=== PATIENT | female | born 1935 | race Caucasian/White ===

== ENCOUNTER 2016-08-18 11:49 | Day surgery (SDC) | payer MEDICARE, OTHER ==
[~2016-08-18 11:49] MED LIST: CLINDAMYCIN PHOSPHATE 900 MG in DEXTROSE 5 % IN WATER 100 ML IV PRN; RINGERS SOLUTION,LACTATED 1,000 ML IV PRN; ROPIVACAINE HCL/PF 40 MG in NORMAL SALINE 16 ML IJ PRN; ceFAZolin SODIUM 1 GM VIAL IV PRN
--- OUTSIDE RECORDS SUMMARY | 2016-08-18 11:51 | XMS REPORT | Continuity of Care Document ---
:1935 Author Organization [facility] [place] [address] Care Team Providers Name Role Phone Dayna Mitchell Primary Care Provider [phone] Source Comments This disclosure is being made pursuant to the [employer] program and maynot contain all information available regarding this patient.[facility] Active Allergies and Adverse Reactions Allergen Noted Date Severity Reactions Comments Cephalexin 04/12/2016 Medium Nausea And Vomiting Cephalosporins 01/10/2015 Medium Nausea And Vomiting Codeine 05/11/2016 Low Dizziness Iodinated Diagnostic Agents 01/10/2015 Low Rash Iodine 01/10/2015 Low Rash,Other (See Comments) Tramadol 04/12/2016 Medium Hallucinations Current Medications Be aware that medications may not be up to date as of this document. Alwaysverify current medications with the patient. Prescription Sig. Disp. Refills Start Date End Date Status diltiazem (TIAZAC) Take 240 mg by Active 240 MG 24 hr mouth. capsule pravastatin Take 40 mg by Active (PRAVACHOL) 40 MG mouth. tablet glipiZIDE ER 5 12/29/2014 Active (GLUCOTROL XL) 2.5 MG 24 hr tablet FREESTYLE LITE test 3 11/27/2014 Active strip Lancets (FREESTYLE) 3 11/27/2014 Active lancets furosemide (LASIX) Take 40 mg by Active 20 MG tablet mouth daily. potassium chloride Take 10 mEq by Active (K-TAB, KLOR-CON) mouth as needed. 10 MEQ tablet Take with Lasix. valsartan (DIOVAN) Take 160 mg by Active 160 MG tablet mouth daily. dofetilide Take 500 mcg by Active (TIKOSYN) 500 MCG mouth 2 (two) capsule times daily. tiotropium Place 18 mcg into Active (SPIRIVA) 18 MCG inhaler and inhale inhalation capsule daily. albuterol (PROAIR Inhale 2 puffs Active HFA;PROVENTIL into the lungs as HFA;VENTOLIN HFA) needed for 108 (90 BASE) Wheezing. MCG/ACT inhaler sertraline (ZOLOFT) Take 25 mg by Active 25 MG tablet mouth 2 (two) times daily as needed. Calcium Take 1 tablet by Active Carbonate-Vit D-Min mouth. (CALCIUM 1200 PO) Catheters MISC Pt to perform 90 each 11 04/09/2015 Active intermittent cath 3 x daily with a 14 fr straight cath. INCRUSE ELLIPTA 1 06/19/2015 Active 62.5 MCG/INH AEPB aspirin (ASPIRIN) Take 325 mg by Active 325 MG EC tablet mouth daily. levothyroxine Take 125 mcg by 2 08/06/2016 Active (SYNTHROID, mouth daily. LEVOTHROID) 125 MCG tablet levothyroxine 150 mcg. 5 12/18/2014 Discontinued (SYNTHROID, 7 LEVOTHROID) 75 MCG tablet pantoprazole Take 40 mg by Discontinued (PROTONIX) 40 MG mouth daily. 7 tablet Active Problems Problem Noted Date Recurrent urinary tract infection 06/24/2015 Incomplete bladder emptying 06/24/2015 Urinary retention 06/23/2015 History of UTI 06/23/2015 Cystocele, midline 06/28/2013 Overview: Overview: CRYSTAL WOLFF Urinary frequency 06/28/2013 Overview: Overview: CRYSTAL WOLFF Most Recent Encounters Date Type Specialty Providers Description 08/16/2016 Ophth Exam Ophthalmology Fito Jones Branch retinal vein R, MD occlusion with macular edema of both eyes (Primary Dx); Type 2 diabetes mellitus with both eyes affected by mild nonproliferative retinopathy without macular edema, without long-term current use of insulin (HCC); Hypertensive retinopathy of both eyes; Artificial lens present 07/23/2016 Ophth Exam Ophthalmology Fito Jones retinal vein R, MD occlusion with macular edema of both eyes (Primary Dx); Type 2 diabetes mellitus with both eyes affected by mild nonproliferative retinopathy without macular edema, without long-term current use of insulin (HCC); Hypertensive retinopathy of both eyes; Artificial lens present 06/22/2016 Ophth Exam Ophthalmology Fito Jones Branch retinal vein R, MD occlusion with macular edema of both eyes (Primary Dx); Type 2 diabetes mellitus with both eyes affected by mild nonproliferative retinopathy without macular edema, without long-term current use of insulin (HCC); Hypertensive retinopathy of both eyes; Artificial lens present 06/18/2016 Ophth Exam Ophthalmology Mark Ramírez MD Surgical aftercare, sense organs - Left Eye (Primary Dx); Pseudophakia - Both Eyes; 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; Type 2 diabetes mellitus with both eyes affected by mild nonproliferative retinopathy without macular edema, without long-term current use of insulin (HCC) 06/09/2016 Telephone Ophthalmology Sonja Perez, Eye Problem - Daughter COA calls with a question 06/01/2016 Orders Only Provider, Not In System 05/28/2016 Ophth Exam Ophthalmology Mark Ramírez MD After-cataract obscuring vision, left (Primary Dx); Pseudophakia - Both Eyes; 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; 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) - LeftEye; 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; Type 2 diabetes mellitus with both eyes affected by mild nonproliferative retinopathy without macular edema, without long-term current use of insulin (HCC) 05/21/2016 Ophth Exam Ophthalmology Mark Ramírez MD After-cataract obscuring vision, left (Primary Dx); Pseudophakia - Both Eyes; 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; 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) - LeftEye; 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; Type 2 diabetes mellitus with both eyes affected by mild nonproliferative retinopathy without macular edema, without long-term current use of insulin (HCC) Social History Tobacco Use Types Packs/Day Years Used Date Never Smoker Smokeless Tobacco: Never Used Alcohol Use Drinks/Week oz/Week Comments No Alcoholic Drinks/day: ALCOHOL USE: NON-DRINKER Last Filed Vital Signs Vital Sign Reading Time Taken Blood Pressure 136/72 06/23/2015 1:26 PM CDT Pulse 72 06/23/2015 1:26 PM CDT Temperature 37.2 C (98.9 F) 06/23/2015 1:26 PM CDT Respiratory Rate 21 06/23/2015 1:26 PM CDT Height 1.6 m (5' 3") 06/23/2015 1:26 PM CDT Weight 77.111 kg (170 lb) 06/23/2015 1:26 PM CDT Body Mass Index 30.12 06/23/2015 1:26 PM CDT Oxygen Saturation - - Plan of Care Date Type Specialty Providers Description 09/27/2016 Appointment Ophthalmology Fito Jones MD [address] [address] [phone] (Fax) Health Maintenance Due Date Last Done Comments Tetanus/Pertussis (1 - Tdap) 1952 Well Adult Visit 10/01/1983 Zoster Vaccine 60+ 1993 Bone Density 1998 Pneumococcal Low/Medium Risk 65+ (1 of 2 - PCV13) 1998 Influenza Immunization (#1) 2015 Results from Last 3 Months Intravitreal Injection, Pharmacologic Agent - OS - Left Eye (08/17/2016 1:15 PM )Only the most recent of2 resultswithin the time period is included. Narrative Carleen Ortiz, 08/17/20161:15 PM OS Avastin Intravit Inj - Left Eye Date/Time: 08/16/2016 2:30 PM Performed by: FITO JONES Authorized by: FITO JONES CT HEAD OR BRAIN WO CONTRAST (05/18/2016)
--- OUTSIDE RECORDS SUMMARY | 2016-08-18 11:51 | XMS REPORT | Continuity of Care Document ---
:1935 Author Organization [facility] Address [address] [place] [address] Phone [phone] Care Team Providers Name Role Phone Sam Freeman Primary Care Provider [phone] Source Comments This disclosure is being made pursuant to the Care Everywhere program, applicable federal and state laws, and may not contain all informaitonavailable regarding this patient.[facility] ([facility] Active Allergies and Adverse Reactions Allergen Noted Date Severity Reactions Comments Cephalexin 01/08/2013 Nausea & Vomiting Iodine Urticaria (Hives) Tramadol 06/27/2012 Hallucinations Current Medications Prescription Sig. Disp. Refills Start Date End Date Status levothyroxine take 112 mcg by mouth Active (SYNTHROID) 112 mcg daily. tablet OTHER Juice plus 4 tabs bid Active diltiazem 240 mg ER Take 240 mg by mouth Active capsule daily. losartan 100 mg Take 100 mg by mouth Active tablet daily. dofetilide (TIKOSYN) Take 500 mcg by mouth Active 500 mcg capsule 2 times daily. hydrALAZINE 50 mg Take 50 mg by mouth 2 Active tablet times daily. calcium carbonate Take 2 Tabs by mouth Active (CALCIUM 600 + D,3,) daily. (600 mg Ca) 1500 mg -cholecalciferol 200 unit per tablet [place]-3 Fatty Acids Take 1 Cap by mouth Active 1,250 mg cap daily. acetaminophen 500 mg Take 500 mg by mouth Active tablet daily as needed. atorvastatin 40 mg Take 1 Tab by mouth at 30 Tab 09/27/2013 Active tablet bedtime. Indications: MIXED HYPERLIPIDEMIA dabigatran (praDAXA) Take 1 Cap by mouth 2 60 Cap 09/27/2013 Active 150 mg capsule times daily. Indications: PREVENT THROMBOEMBOLISM WITH CHRONIC ATRIAL FIBRILLATION predniSONE 20 mg Take 3 Tabs by mouth 20 Tab 0 09/27/2013 Active tablet daily. Indications: Sensorineural hearing loss Active Problems Problem Noted Date Stroke 09/24/2013 Cystocele 01/02/2013 Recurrent UTI 06/27/2012 Feeling of incomplete bladder emptying 06/27/2012 Branch retinal vein occlusion, both eyes 02/15/2012 Overview: Formatting of this note may be different from the original. 03/23/2012 20/25-3 Avastin [id number] 05/11/2012 20/500 20/40 +2 [id number] 06/22/2012 20/600 ecc 20/25 +2 Avastin 08/03/2012 20/219 20/28 Avastin [id number] 08/31/2012 20/280 -2 20/44 -1 Avastin [id number] 10/05/2012 Avastin [id number] 12/06/2012 20/300 eccen cc -2 cc Avastin [id number] Thyroid activity decreased 08/08/2008 Atrial fibrillation 08/08/2008 Overview: Cardioverted in past. Constipation 08/08/2008 Unspecified essential hypertension 11/01/2007 Resolved Problems Problem Noted Date Resolved Date Cystocele 06/27/2012 01/02/2013 Overview: Asymptomatic- may contribute to occasional incomplete bladder emptying Last Assessment & Plan: vv Dysuria 06/19/2008 06/27/2012 Immunizations Name Dates Previously Given Next Due Influenza, unspecified 01/06/2012 Pneumococcal, unspecified 01/06/2012 Social History Tobacco Use Types Packs/Day Years Used Date Never Smoker Smokeless Tobacco: Never Used Tobacco Cessation:Counseling Given: Yes Comments: Alcohol Use Drinks/Week oz/Week Comments Yes Very occasional Last Filed Vital Signs Vital Sign Reading Time Taken Blood Pressure 144/74 09/27/2013 12:00 PM CDT Pulse 72 09/27/2013 12:00 PM CDT Temperature 36.2 C (97.2 F) 09/27/2013 12:00 PM CDT Respiratory Rate 19 09/27/2013 12:00 PM CDT Height 1.6 m (5' 3") 09/24/2013 10:08 PM CDT Weight 76.2 kg (167 lb 15.9 oz) 09/24/2013 10:08 PM CDT Body Mass Index 29.77 09/24/2013 10:08 PM CDT Oxygen Saturation 95% 09/27/2013 12:00 PM CDT Plan of Care Health Maintenance Due Date Last Done Comments Hepatitis B Vaccine (1 of 3 - Primary 1935 Series) Tdap Vaccine 1946 Td Vaccine 10/01/1951 Colonoscopy 1983 Zoster Vaccine 1993 Osteoporosis Screening (DXA Bone Density) 1998 Pneumococcal Vaccine (1 of 2 - PCV13) 1998 HCC Annual Coding Diabetes with Chronic 03/07/2015 05/11/2012, 05/11/2012 Complications Influenza Vaccine: Seasonal (#1) 10/06/2015 01/06/2012 Lipid Disorder Screening 09/25/2018 09/25/2013 Results from Last 3 Months Not on file
[2016-08-18] MEDS ORDERED: RINGERS SOLUTION,LACTATED 1,000 ML IV ONE (12:45)
[2016-08-18] MEDS ORDERED: BUPIVACAINE HCL/EPINEPHRINE 10 ML VIAL IJ ONE (13:20)
--- NOTE | 2016-08-18 14:25 | OR ---
Operative Report - Dictated Report Narrative: Date: 08/18/2016 Physician: Anthony Cuevas M.D. Half Sole Fitter: Arjun Somers PA-C Preoperative diagnosis: Right Knee medial and lateral meniscus tear Postoperative diagnosis: Right Knee medial and lateral meniscus tear, chondromalacia medial femoral condyle Procedure: Right knee arthroscopy with partial medial and lateral meniscectomy, chondroplasty medial femoral condyle Anesthesia: MAC Plus local Complications: None Estimated blood loss: Minimal Tourniquet time: None Specimens: None Retained implants: None Drains: None Indications: Mrs. Storey Is a 80-year-old female who has been followed in my clinic with complaints of knee pain consistent with suspected medial and lateral joint pathology. Physical exam and diagnostic imaging were consistent with these complaints and concern for medial and lateral meniscus pathology. Conservative measures have failed including, but not limited to, passage of time , activity modification, medications, and injections. The risks, benefits, and alternatives were discussed in clinic. The risks being , bleeding, infection, blood clots, nerve, tendon, ligament, blood vessel injury, persistent pain, arthrosis, need for additional procedures, and persistent symptoms. Consent was obtained in the clinic. Procedure: After marking the correct extremity in the preoperative holding area, a timeout was performed in the operating room. IV antibiotics consisting of Ancef were administered prior to the procedure. A well-padded tourniquet was applied to the operative upper thigh. The leg was prepped and draped in a standard sterile fashion. 0.5% Marcaine with epinephrine was infused into the projected portal sites as well as the intra-articular space. A chelsea incision was made for inferior lateral portal. A blunt trocar and cannula was introduced into the knee. The suprapatellar pouch revealed no pathology. The medial patella facet showed minimal degenerative change. The lateral patella facet showed minimal degenerative change. The trochlea showed minimal degenerative change. The medial gutter revealed no pathology. The medial joint space was then entered utilizing a lateral post and valgus stress. A spinal needle was utilized for guidance into placement of an anterior medial portal. This was placed just superior to the medial meniscus ensuring that we could reach the posterior aspect of the medial joint space. A chelsea incision was made in the site, and the probe was introduced to the knee. The medial joint space was examined, and the medial femoral condyle showed grade 2-3 changes with chondral flap. The medial tibial plateau showed grade 2 change. The medial meniscus had a complex tear of the posterior one third involving approximately 20% of the depth. The notch was then examined, and the ACL was noted to be intact. The PCL was noted to be intact. The lateral joint space was then examined using a varus force in the figure 4 position. Lateral femoral condyle showed grade 2 change. Lateral tibial plateau showed focal grade 4 change. The lateral meniscus showed had a displaced pair deep type tear involving the anterior one half. The lateral gutter showed no pathology. Having identified the surgical pathology, a series of biters and nadeem were utilized in order to debride the medial femoral condyle down to stable margins. The posterior one third of the medial meniscus down approximately 20% of the depth and the anterior horn of the lateral meniscus involving approximate 75% of the depth over approximately 50% of the circumference. Once it was felt that we adequately addressed the pathology, the knee was thoroughly irrigated. The fluid was evacuated ensuring that we have removed all meniscal, chondral, and any other loose bodies. A final evaluation of the joint showed no additional pathology. The fluid was then evacuated of the knee, and the trocar and camera were removed from the joint. The wounds were closed with interrupted nylon after placing 20 mL of 0.2% ropivacaine into the joint. Dressings consisting of Xeroform, 4 x 4, ABD, soft roll, and an Pranay were applied. All sponge, needle, blade, and instrument counts were correct prior to closing the wounds. The patient was awoken and transferred to the postanesthesia care unit in stable condition.
[2016-08-18 17:16] VITALS: BP 138/72
== END 2016-08-18 11:50 | disposition home or self-care (01) ==
LOC: AMB 11:49
PROVIDERS: ATTEND Orthopaedic Surgery
PROC: 0SBD4ZZ Excision of Left Knee Joint, Percutaneous Endoscopic Approach (ICD-10-PCS; principal; 2016-08-18 13:50)
DX: M23.241 Derangement of anterior horn of lateral meniscus due to old tear or injury, right knee (principal); M23.203 Derangement of unspecified medial meniscus due to old tear or injury, right knee; M94.261 Chondromalacia, right knee; I10 Essential (primary) hypertension; J45.909 Unspecified asthma, uncomplicated; I48.91 Unspecified atrial fibrillation; E78.5 Hyperlipidemia, unspecified; E03.9 Hypothyroidism, unspecified; E05.00 Thyrotoxicosis with diffuse goiter without thyrotoxic crisis or storm; M85.80 Other specified disorders of bone density and structure, unspecified site; G47.33 Obstructive sleep apnea (adult) (pediatric); G47.00 Insomnia, unspecified; Z86.73 Personal history of transient ischemic attack (TIA), and cerebral infarction without residual deficits; E11.9 Type 2 diabetes mellitus without complications; Z68.28 Body mass index [BMI] 28.0-28.9, adult

== ENCOUNTER 2018-06-28 06:28 | Inpatient (IN) ==
--- NOTE | 2018-06-14 14:57 | ANES ---
Anesthesia Pre Procedure Eval HOME MEDICATIONS Calc/D3/Mag/Zn/Dani/[place] [Calcium 600 mg Plus Vit D Tab] 1 ea PO BID 07/13/16 [Last Taken Unknown] Diltiazem HCl [Diltiazem 24Hr Cd] 120 mg PO DAILY 07/13/16 [Last Taken Unknown] Estradiol [Estrace Vaginal] 1 appl VAGINAL Q2D PRN MDD vaginal dryness 07/13/16 [Last Taken Unknown] Furosemide [Lasix] 40 mg PO DAILY 07/13/16 [Last Taken Unknown] Methenamine Hippurate 1 gm PO BID 07/13/16 [Last Taken Unknown] Potassium Chloride [Klor-Con 10] 10 meq PO DAILY 07/13/16 [Last Taken Unknown] Pravastatin Sodium 40 mg PO DAILY 07/13/16 [Last Taken Unknown] Cyanocobalamin [Vitamin B-12] 1,000 mcg PO BID 08/18/16 [Last Taken Unknown] albuterol sulfate HFA 90 mcg/actuation aerosol inhaler 1 puff INHALATION Q6H PRN g 06/07/18 [Last Taken Unknown] diclofenac 20 mg/gram/actuation (2 %) topical soln metered-dose pump 2 pump TP BID 06/07/18 [Last Taken Unknown] dofetilide 500 mcg capsule 500 mcg PO BID cap 06/07/18 [Last Taken Unknown] sertraline 25 mg tablet 25 mg PO BID PRN tab 06/07/18 [Last Taken Unknown] aspirin 325 mg tablet 325 mg PO DAILY 06/08/18 [Last Taken Unknown] bethanechol chloride 10 mg tablet 10 mg PO TID 06/08/18 [Last Taken Unknown] irbesartan 75 mg tablet 75 mg PO DAILY 06/08/18 [Last Taken Unknown] levothyroxine 112 mcg capsule 112 mcg PO DAILY 06/08/18 [Last Taken Unknown] melatonin 1 mg tablet 1 mg PO HS PRN 06/08/18 [Last Taken Unknown] ondansetron HCl 8 mg tablet 8 mg PO TID 06/08/18 [Last Taken Unknown] Allergies/Adverse Reactions: Allergies Allergy/AdvReac Type Severity Reaction Status Date / Time iodine Allergy Intermediate rash Verified 06/14/18 08:35 codeine Allergy Mild dizziness Verified 06/14/18 08:35 Cephalosporins AdvReac Intermediate Vomiting Verified 06/14/18 08:35 tramadol AdvReac Intermediate Other Verified 06/14/18 08:35 Beta-Blockers AdvReac fatigue/col Verified 06/14/18 08:35 (Beta-Adrenergic Bloc d ezetimibe [From Vytorin] AdvReac leg pain Verified 06/14/18 08:35 hydrocodone AdvReac sedation Verified 06/14/18 08:35 simvastatin [From Vytorin] AdvReac leg pain Verified 06/14/18 08:35 Contrast Dye Allergy Intermediate rash Uncoded 06/14/18 08:35 - Planned Procedure Planned Procedure: Right Total Knee Arthroplasty Medication List Reviewed:: Yes Allergies Verified: Yes Medical History (Updated 06/08/18 @ 07:19 by Fernanda Gonzalze) Anxiety Onset Date: Unknown Asthma Onset Date: Unknown Atrial fibrillation Onset Date: Unknown Benign cyst of right breast in female Onset Date: Unknown Brain bleed Onset Date: Unknown CAD (coronary artery disease) Onset Date: Unknown Cataract Onset Date: Unknown right eye Cystocele Onset Date: Unknown Diabetic nephropathy Onset Date: Unknown OU Dysthymia Onset Date: Unknown Emphysema, unspecified Onset Date: Unknown Graves disease Onset Date: Unknown Hammertoe Onset Date: Unknown Hearing loss Onset Date: Unknown right ear Hyperlipidemia Onset Date: Unknown Hypertension Onset Date: Unknown Insomnia Onset Date: Unknown Ischemic stroke Onset Date: Unknown Low back pain Onset Date: Unknown Macular degeneration of both eyes Onset Date: Unknown Osteopenia Onset Date: Unknown Rectocele Onset Date: Unknown Sleep apnea Onset Date: Unknown nocturnal hypoxia and PAUL treated with BIPAP Spinal stenosis Onset Date: Unknown Type 2 diabetes mellitus Onset Date: Unknown UTI (urinary tract infection) Onset Date: Unknown Surgical History (Updated 06/08/18 @ 09:35 by Josep Nguyen RN) H/O prior ablation treatment Onset Date: 06/2004 thyroid History of arthroscopic knee surgery Onset Date: 08/18/16 right knee arthroscopy with partial medial and lateral meiscectomy, chondroplasty medial femoral condyle per Dr Cuevas History of bladder suspension procedure Onset Date: Unknown History of breast biopsy Onset Date: Unknown right History of cardiac catheterization Onset Date: 01/18/06 History of cardioversion Onset Date: 2008 History of cataract surgery Onset Date: Unknown right History of colonoscopy Onset Date: 04/11/00 History of cystoscopy Onset Date: Unknown History of foot surgery Onset Date: 10/2014 Repair of 5th digit hammertoe with plastic skin closure History of hysterectomy Onset Date: Unknown history of toe amputation Onset Date: 2018 left fourth lumbar decompression Onset Date: Unknown Family History (Updated 06/07/18 @ 07:30 by Fernanda Gonzalez) Father Myocardial infarction Mother Cancer colon - Family Anesthesia History Family History:: no untoward family reactions to anesthesia, no familial bleeding tendencies, no family history of clotting disorders, no family history of premature - Airway/Neck/Teeth Within Normal Limits:: Yes - chipped front tooth Mallampatti Score: 3 Thyromental (T-M) distance: > 6 cm Mandibulo Hyoid distance: > 3 cm - Respiratory Respiratory History: asthma, COPD, sleep apnea Smoking Status: Never smoker Discussed smoking cessation including day of surgery: No Sleep Apnea currently treated: Yes Discussed Risks/Treatment of PAUL: No - Cardiovascular Cardiac History: arrhythmia - AF Tolerate Activity: Fair - Anesthesia Assessment and Plan ASA Class: PS, III Anesthesia Type Plan: Block - Right ultrasound guided peripheral nerve block for postop analgesia, Spinal
[~2018-06-28 06:28] MED LIST changes: -CLINDAMYCIN PHOSPHATE 900 MG in DEXTROSE 5 % IN WATER 100 ML IV PRN; +MORPHINE SULFATE 15 MG TABLET.SA PO PRN; -RINGERS SOLUTION,LACTATED 1,000 ML IV PRN; +ROPIVACAINE HCL/PF 100 MG, EPINEPHrine 0.2 MG, KETOROLAC TROMETHAMINE 30 MG in NORMAL S... IJ PRN; -ROPIVACAINE HCL/PF 40 MG in NORMAL SALINE 16 ML IJ PRN; +TRANEXAMIC ACID 1,000 MG in NORMAL SALINE 100 ML IV PRN
[2018-06-28] MEDS: RINGER'S SOLUTION,LACTATED 1,000 ML IV PRN ×3 (07:28→15:34)
[2018-06-28] MEDS ORDERED: ONDANSETRON HCL/PF 2 MG/ML VIAL IV PRN (09:59)
[2018-06-28] MEDS ORDERED: MAG HYDROX/ALUMINUM HYD/SIMETH 30 ML UDC PO PRN (09:59)
[2018-06-28] MEDS ORDERED: ZOLPIDEM TARTRATE 5 MG TABLET PO PRN (09:59)
[2018-06-28] MEDS ORDERED: diphenhydrAMINE HCL 50 MG/ML VIAL IV PRN (09:59)
[2018-06-28] MEDS ORDERED: ACETAMINOPHEN 500 MG TABLET PO PRN (09:59)
[2018-06-28] MEDS ORDERED: MORPHINE SULFATE 2 MG/ML DISP.SYRIN IV PRN (09:59)
[2018-06-28] MEDS ORDERED: SERTRALINE HCL 50 MG TABLET PO PRN (10:02)
[2018-06-28] MEDS ORDERED: Melatonin 1 MG PO PRN (10:02)
--- NOTE | 2018-06-28 10:06 | OR ---
Operative Report - Dictated Report Narrative: Date: 06/28/2018 Preoperative diagnosis: Right Knee degenerative joint disease. Postoperative diagnosis: Right Knee degenerative joint disease. Procedure: Right Total knee arthroplasty. Surgeon: Anthony Cuevas M.D. Microsoft Application Developer: Arjun Somers PA-C (provided and essential set of skilled, educated hands that assisted with transfer, positioning, prepping, draping, manipulation, retraction, placement of jigs, injection, insertion of implants, irrigation, closure wounds, and dressings all of which could not be performed by the available surgical crew) Anesthesia: Spinal with regional block and local periarticular joint injection. Complications: None Specimens: Bone for disposal. Estimated blood loss: Minimal. Tourniquet time: 75 Minutes at 325 millimeters of mercury. Retained implants: Depuy Attune size 5 narrow right lugged cemented posterior stabilized femoral component. Size 4 fixed-bearing cemented tibial platform. 5 by 7 millimeter posterior stabilized cross-linked tibial insert. 41 millimeter medialized patella button. Indications: Mrs. Storey is a 82-year-old female who has had long-standing right knee pain and arthrosis. This patient was followed in my clinic for period of time with significant complaints of right knee pain consistent with arthritic changes. She had failed conservative measures including, but not limited to, activity modification, passage of time, medications, and other conservative measures. Patient wished to proceed with surgical treatment. The risks, benefits, and alternatives were discussed in clinic. The risks of , blood clots, bleeding, infection, nerve/tendon blood vessel/ injury, malposition of components, intraoperative fracture, postoperative limited range of motion, persistent pain, failure of components, and need for additional procedures. Patient wished to proceed consent was obtained after answering all questions. Procedure: After marking the correct extremity on the floor, the patient was taken to the operating room. A timeout was performed. IV antibiotics consisting of Ancef were administered prior to the procedure. A regional followed by spinal anesthetic was induced by anesthesia, per my request, on the operative table with all bony prominences well-padded. Scott catheter was placed, and a bump was placed under the operative side buttock. SCDs and DARLENE hose were utilized on the nonoperative leg. A well-padded tourniquet was applied to the operative thigh. The operative leg was then pre-scrubbed with alcohol, prepped, and draped in a standard sterile fashion. After exsanguinating the extremity with an Esmarch bandage, the tourniquet was inflated. After marking out the anterior knee for standard incision centered over the patella, the skin was incised and dissected down to the joint retinaculum. The joint retinaculum was marked out as well as the horizontal axis of the patella, and a standard medial parapatellar arthrotomy was then made. The most proximal aspect of the quadriceps tendon and the patella tendon insertion were protected from release. A partial synovectomy was performed as well as a resection of the infrapatellar fat pad. The distal femoral fat pad proximal to the trochlea was also resected using cautery. The soft tissues were elevated off the medial aspect of the proximal tibia using a Barnhart elevator ensuring that we did not transect the medial collateral ligament. Upon initial evaluation range of motion was approximately 5 degrees to 130 degrees of flexion. There were signs of advanced arthrosis in the lateral and patellofemoral greater than medial joint spaces. There were large marginal osteophytes which were removed with a rongeur. The knee was hyperflexed and the patella was tucked laterally. Protecting the surrounding soft tissues with Homans, an entry drill was placed down the femoral canal using Whitesides line for guidance into the entry point. The intramedullary femoral alignment hermilo was utilized in order to cut the distal femur in 5 degrees of valgus resecting 10 millimeters of bone. Next the distal femur was sized to a size 5. A posterior referencing guide was utilized to place the distal femoral cutting block in 3 degrees of external rotation. This was pinned into place. The rotation was confirmed both visually and based on anatomic landmarks. The 4 in 1 cutting jig of the appropriate size was utilized in order to make all bony cuts. The angle wing was used to ensure no notching. Retractors were utilized in order to protect surrounding soft tissues. This cut did not result in any excessive notching. We then cut the box centered over the distal femur. This allowed for resection of the anterior and posterior cruciate ligaments. I then turned my attention to the preparation of the tibia. Using an extra medullary tibial alignment hermilo, 5 millimeters of bone was resected off the medial articular surface. This was made perpendicular to the mechanical axis of the joint with the alignment hermilo centered over the ankle mortise. The alignment hermilo was checked and was noted to be parallel to the mechanical axis, centered over the medial one third of the tibial tubercle, paralleling the anterior surface of the tibia. We then turned our attention to the remaining meniscus and soft tissues. These were removed while protecting the surrounding ligaments and soft tissues. The marginal osteophytes off the anterior, posterior, medial, lateral aspects of the femur and tibia were removed. The tibia was sized out to a size 4. Next the tibia was drilled and punched in an externally rotated position. Next the trial femur and a series of tibial inserts were utilized in order to allow for full extension and maximal flexion. It was found that a 7 millimeter insert gave the best range of motion and stability at multiple flexion points as well as at full extension there was less than 2 mm of gapping both medially and laterally. There is minimal anterior translation with the knee at 90 degrees of flexion and no signs of being able to dislocate the knee. The patella was then prepared. The initial thickness was 23 millimeters. This was reamed down to 13 millimeters parallel to the anterior surface of the patella. It was sized out to a size 41 medialized patella button. This was then drilled and trialed. Without any medial restraint the patella tracked appropriately and did not sublux or dislocate. At this point, it was felt these were the appropriate sized implants, and all trials were removed. The standard periarticular joint injection consisting of ropivacaine, Toradol, and epinephrine were injected into the periarticular joint tissues. The bony surfaces were thoroughly irrigated with a pulsatile-suction saline irrigation device. A bone plug from the prior resected anterior chamfer cut was placed into the drill hole at the distal femur. The bony surfaces were then dried in preparation for placement of the implants. The cement was vacuum mixed per the value stream coach's instructions. The cement was placed on the dry bony surfaces and posterior aspect of the implants. The implants were impacted into place, removing all extruded cement. At this point anesthesia administered tranexamic acid per protocol intravenously. The knee was placed in extension with axial loading with the trial insert while the cement cured. Once the cement cured, all remaining extruded cement was removed. The knee was placed through a range of motion with the trial insert to ensure appropriate range of motion and stability. Final range of motion was approximately 0 to 130 degrees. The knee was again thoroughly irrigated with pulsatile saline lavage. The final polyethylene insert was then impacted into place ensuring no retained soft tissues. The remaining periarticular joint injection was injected. A medium Hemovac drain was placed exiting superior laterally. The knee was then placed over a triangle and the arthrotomy was closed with interrupted #1 Vicryl after thoroughly irrigating the joint. The deep and subcutaneous tissues were closed with interrupted 0 and 3-0 Vicryl respectively. Skin was closed with a running subcutaneous 3-0 Monocryl and Prineo Dermabond dressing. 4 x 4's, Sof-Rol, and a full leg Pranay wrap were applied. All sponge, needle, blade, and instrument counts were correct prior to closing the wounds. Postoperative condition: The patient was awoken and transferred to the postanesthesia care unit in stable condition. Plan is to be admitted to the inpatient medical/surgical floor postoperatively for 24 hours of IV antibiotics, physical therapy, occupational therapy, and medical comanagement. Patient will be weightbearing as tolerated with range of motion as tolerated. DVT prophylaxis will be with SCDs, DARLENE hose, and pharmacological anticoagulation. Anticipated hospital stay is approximately 1-3 days.
--- NOTE | 2018-06-28 10:15 | ANES ---
Anesthesia Procedure Note Procedure Note: ANESTHESIA PROCEDURE NOTE Date of Procedure: 06/28/2018 Time of procedure: 8:15 AM. Performed by: Ethan Olmedo CRNA, MSN Punch Press Operator Helper: Melita Diaz RN. Preprocedure diagnosis: Post right total knee arthroplasty pain. Post procedure diagnosis: Same. Procedure: Right Adductor Canal Block. Indications: Post great total knee arthroplasty pain relief. Findings: See below. Details of the procedure: The patient was brought to OR for 4 and placed in supine position. The patient's right femoral area to the knee was prepped with chlorhexidine and using ultrasound guidance the right femoral artery wasidentified at approximately the proximal one third femur. Under ultrasound guidance the saphenous nerve was approached with visualization of a 4 inch shielded block needle approaching the adductor canal just under the sartorius muscle. Once saphenous nerve was identified with proximity to the needle tip, the saphenous nerve was surrounded with 20 mL bupivacaine 0.25% with 1-200,000 epinephrine. Please see radiology/ultrasound report for details and retained images of the procedure. EBL: 0 Fluids: N/A. Specimen: N/A. Post procedure condition: The patient tolerated the procedure well. No complications were noted. Thank you for this consultation. Ethan Olmedo CRNA, MSN
--- NOTE | 2018-06-28 10:16 | ANES ---
Post Anesthesia Discharge - Transfer of Care Transfer of Care handoff given to nurse: Yes - Discharge from PACU Discharge from PACU when meets criteria: Yes - Alert and comfortable
--- NOTE | 2018-06-28 10:41 | ANES ---
Post Anesthesia Assessment - Vital Signs Vitals: Last Vital Signs Temp 37.5 C 06/28/18 10:20 Pulse 87 06/28/18 10:20 Resp 14 06/28/18 10:20 BP 141/67 06/28/18 10:20 Pulse Ox 97 06/28/18 10:20 Airway Patency: Normal - Mental Status Level Of Consciousness: Awake, Alert, Appropriate - Pain Level Pain Score: 0 - N/V Assessment Nausea/Vomiting Presence: None Dehydration:: No
[2018-06-28] MEDS: KETOROLAC TROMETHAMINE 15 MG/ML VIAL IV SCH ×3 (11:23→23:38)
[2018-06-28] MEDS: ceFAZolin SODIUM 1 GM in DEXTROSE 5 % IN WATER 100 ML IV SCH ×6 (11:27→23:39)
[2018-06-28] MEDS ORDERED: BETHANECHOL CHLORIDE 10 MG TABLET PO SCH (13:00)
[2018-06-28] MEDS: ONDANSETRON HCL 8 MG TABLET PO SCH ×2 (13:40→17:22)
[2018-06-28] MEDS: BETHANECHOL CHLORIDE 10 MG TABLET PO SCH (17:21)
[2018-06-28] MEDS: SIMVASTATIN 20 MG TABLET PO SCH (21:26)
[2018-06-28] MEDS: DOFETILIDE 500 MCG PO SCH (21:26)
[2018-06-28] MEDS: METHENAMINE MANDELATE 1 GM TABLET PO SCH (21:27)
[2018-06-28] MEDS: CYANOCOBALAMIN 1,000 MCG TABLET PO SCH (21:27)
[2018-06-28] MEDS: CALCIUM CARBONATE/VITAMIN D3 1 TAB TABLET PO SCH (21:27)
[2018-06-28] MEDS: SENNOSIDES/DOCUSATE SODIUM 1 TAB TABLET PO SCH (21:28)
[2018-06-29] MEDS: RINGER'S SOLUTION,LACTATED 1,000 ML IV PRN ×2 (00:41→19:39)
[2018-06-29] MEDS: MORPHINE SULFATE 10 MG/0.5 ML SYRINGE PO PRN ×5 (04:50→23:41)
[2018-06-29] MEDS: KETOROLAC TROMETHAMINE 15 MG/ML VIAL IV SCH ×4 (04:50→23:41)
[2018-06-29 05:44] LABS: Anion Gap 9.1 mmol/L (6.8-13.8); BUN/Creatinine Ratio 17.4 (9.0-21.6); Calcium * 9.3 mg/dL (7.9-10.9); Carbon Dioxide 31.3 mmol/L (24-32.6); Estimated Creat Clear 51.9; Potassium 4.4 mmol/L (3.4-4.6)
[2018-06-29 06:05] LABS: Hematocrit 34.1 % (37.0-47.0); Hemoglobin 10.6 gm/dL (12.5-16.0); Mean Cell Volume 96.3 fl (78-100); Mean Corpuscular Hemoglobin 29.9 pg (27-31); Mean Corpuscular Hgb Conc 31.1 g/dl (32-36); Mean Platelet Volume 11.3 fl (8-12.5); Platelet Count 243 K/mm3 (150-450); Red Blood Count 3.54 M/mm3 (4.2-5.4); Red Cell Distribution Width 14.6 % (11.5-14.0); White Blood Count 8.6 K/mm3 (4.0-10.5)
[2018-06-29] MEDS: LEVOTHYROXINE SODIUM 112 MCG TABLET PO SCH (06:33)
--- NOTE | 2018-06-29 08:20 | PN ---
Subjective - Date and Time Seen Date: 06/29/18 Time: 08:12 Subjective Narrative: Patient reports she had an episode of feeling flushed standing up this morning. She reports this is improved now that she is sitting down and eating breakfast. She reports her pain is adequately controlled. She has not had any chest pain or shortness of breath. Nursing reports she has had a little bit of saturated blood on the outside of her dressing lateral knee region. The nurse reports her Hemovac does hold when charge. Objective Objective Narrative: Patient sitting in chair alert and oriented. She appears to be comfortable in no distress. She is able to plantarflex and dorsiflex the right ankle. Calf supple nontender. Some bloody show through on the dressings lateral knee. Vitals reviewed she has been running hypertensive but on reviewing chart she has not had her blood pressure medication yesterday or yet this morning. Hemoglobin is 10.6 - Vitals Vitals: Last Vital Signs Temp 35.6 C L 06/28/18 23:10 Pulse 69 06/29/18 03:37 Resp 16 06/29/18 03:00 BP 170/81 H 06/29/18 03:00 Pulse Ox 92 L 06/29/18 03:37 - Abnormal Lab Findings Abnormal Lab Findings: Abnormal Lab Results 06/29/18 06/29/18 Range/Units 05:31 05:31 RBC 3.54 L (4.2-5.4) M/mm3 Hgb 10.6 L (12.5-16.0) gm/dL Hct 34.1 L (37.0-47.0) % MCHC 31.1 L (32-36) g/dl RDW 14.6 H (11.5-14.0) % Random Glucose 114 H (70-110) mg/dL Cauti Physician Documentation - Urinary Catheter Management Urethral (Scott) Date of Insertion: 06/28/18 Time of Insertion: 08:59 Date of Removal: 06/29/18 Time of Removal: 06:30 Assessment/Plan - Problems/Diagnosis (1) Status post right knee replacement Problem: Acute Narrative: Physical therapy, pull drain later today and dressing change couple hours after that, hypertensive medications and monitor blood pressure, pain control, anticoagulation, Mily planning to go to [place] for skilled care on Tuesday. (2) Hypertension Problem: Chronic (3) Acute blood loss anemia Problem: Acute (4) Diabetes type 2, controlled Problem: Chronic (5) Hyperlipidemia Problem: Chronic (6) Asthma Problem: Chronic (7) History of stroke Problem: Chronic (8) Sleep apnea Problem: Chronic (9) Coronary artery disease Problem: Chronic (10) Diabetic neuropathy Problem: Chronic
[2018-06-29] MEDS: ENOXAPARIN SODIUM 40 MG/0.4 ML SYRG SC SCH (08:56)
[2018-06-29] MEDS: DILTIAZEM HCL 120 MG CAP.SR.24H PO SCH (08:57)
[2018-06-29] MEDS: POTASSIUM CHLORIDE 10 MEQ TABLET.SA PO SCH (08:58)
[2018-06-29] MEDS: LOSARTAN POTASSIUM 50 MG TABLET PO SCH (08:58)
[2018-06-29] MEDS: DOFETILIDE 500 MCG PO SCH ×2 (09:01→20:05)
[2018-06-29] MEDS: FUROSEMIDE 40 MG TABLET PO SCH (09:02)
[2018-06-29] MEDS: CALCIUM CARBONATE/VITAMIN D3 1 TAB TABLET PO SCH ×2 (09:02→20:04)
[2018-06-29] MEDS: BETHANECHOL CHLORIDE 10 MG TABLET PO SCH ×3 (09:03→17:30)
[2018-06-29] MEDS: CYANOCOBALAMIN 1,000 MCG TABLET PO SCH ×2 (09:05→20:07)
[2018-06-29] MEDS: METHENAMINE MANDELATE 1 GM TABLET PO SCH ×2 (09:07→20:06)
[2018-06-29] MEDS: ONDANSETRON HCL 8 MG TABLET PO SCH ×3 (09:07→17:30)
[2018-06-29] MEDS: SENNOSIDES/DOCUSATE SODIUM 1 TAB TABLET PO SCH (20:05)
[2018-06-29] MEDS: SIMVASTATIN 20 MG TABLET PO SCH (20:07)
[2018-06-30] MEDS: MORPHINE SULFATE 10 MG/0.5 ML SYRINGE PO PRN ×2 (03:00→06:33)
[2018-06-30] MEDS: KETOROLAC TROMETHAMINE 15 MG/ML VIAL IV SCH (04:56)
[2018-06-30] MEDS: LEVOTHYROXINE SODIUM 112 MCG TABLET PO SCH (06:20)
--- NOTE | 2018-06-30 09:14 | PN ---
Subjective - Date and Time Seen Date: 06/30/18 Time: 09:07 Subjective Narrative: Patient reports pain controlled at rest. Is currently working with therapy and standing up reports discomfort at this time with ambulation. Therapy reports she is having a difficulty following commands and is a little confused. Reviewing nursing notes they state the same. No chest pain or shortness of breath-although therapy does note some mild wheezing. No nausea or vomiting at this time. Objective Objective Narrative: Patient will respond to questions and at this time is alert. Patient currently standing with physical therapy assist x2. Patient has DARLENE hose on bilateral lower extremities. Some dry bloody breakthrough on the DARLENE hose noted but minimal. Calf supple. Vital signs show that her blood pressure is returned down to within normal limits. - Vitals Vitals: Last Vital Signs Temp 36.6 C 06/30/18 06:49 Pulse 73 06/30/18 06:26 Resp 18 06/30/18 06:26 BP 142/56 06/30/18 06:26 Pulse Ox 95 06/30/18 06:26 Cauti Physician Documentation - Urinary Catheter Management Urethral (Scott) Date of Insertion: 06/28/18 Time of Insertion: 08:59 Date of Removal: 06/29/18 Time of Removal: 06:30 Assessment/Plan - Problems/Diagnosis (1) Status post right knee replacement Problem: Acute Narrative: Patient was able to ambulate in the jeffery at this time with physical therapy. She did need some encouragement. We will discontinue her long-acting morphine as I think this is what is contributing to her confusion. She can still have her short acting pain medicine as needed. Continue with anticoagulation. Anticipate discharge to [facility] for skilled care tomorrow. (2) Hypertension Problem: Chronic (3) Acute blood loss anemia Problem: Acute (4) Diabetes type 2, controlled Problem: Chronic (5) Hyperlipidemia Problem: Chronic (6) Asthma Problem: Chronic Narrative: Can have albuterol as needed for wheezing (7) History of stroke Problem: Chronic (8) Sleep apnea Problem: Chronic (9) Coronary artery disease Problem: Chronic (10) Diabetic neuropathy Problem: Chronic
[2018-06-30] MEDS ORDERED: MORPHINE SULFATE 10 MG/0.5 ML SYRINGE PO PRN (09:16)
[2018-06-30] MEDS: CALCIUM CARBONATE/VITAMIN D3 1 TAB TABLET PO SCH (09:50)
[2018-06-30] MEDS: LOSARTAN POTASSIUM 50 MG TABLET PO SCH (09:50)
[2018-06-30] MEDS: ENOXAPARIN SODIUM 40 MG/0.4 ML SYRG SC SCH (09:50)
[2018-06-30] MEDS: DILTIAZEM HCL 120 MG CAP.SR.24H PO SCH (09:50)
[2018-06-30] MEDS: DOFETILIDE 500 MCG PO SCH ×2 (09:51→22:23)
[2018-06-30] MEDS: FUROSEMIDE 40 MG TABLET PO SCH (09:52)
[2018-06-30] MEDS: POTASSIUM CHLORIDE 10 MEQ TABLET.SA PO SCH (09:52)
[2018-06-30] MEDS: BETHANECHOL CHLORIDE 10 MG TABLET PO SCH ×3 (09:52→17:05)
[2018-06-30] MEDS: METHENAMINE MANDELATE 1 GM TABLET PO SCH ×2 (09:53→22:27)
[2018-06-30] MEDS: ONDANSETRON HCL 8 MG TABLET PO SCH ×3 (09:53→17:05)
[2018-06-30] MEDS: CYANOCOBALAMIN 1,000 MCG TABLET PO SCH ×2 (09:53→22:27)
[2018-06-30] MEDS: ACETAMINOPHEN 500 MG TABLET PO SCH ×3 (09:53→22:28)
[2018-06-30] MEDS: ALBUTEROL SULFATE 2.5 MG/0.5 ML VIAL.NEB IH PRN (14:38)
[2018-06-30 14:49] LABS: Hematocrit 31.3 % (37.0-47.0); Mean Cell Volume 95.7 fl (78-100); Mean Corpuscular Hemoglobin 30.6 pg (27-31); Mean Corpuscular Hgb Conc 31.9 g/dl (32-36); Mean Platelet Volume 10.7 fl (8-12.5); Neutrophil # 10.3 K/mm3 (1.3-6.0); Neutrophil % 83.3 % (42-75.0); Platelet Count 241 K/mm3 (150-450); Red Blood Count 3.27 M/mm3 (4.2-5.4); Red Cell Distribution Width 14.6 % (11.5-14.0); White Blood Count 12.4 K/mm3 (4.0-10.5)
[2018-06-30 14:52] LABS: Anion Gap 8.7 mmol/L (6.8-13.8); BUN/Creatinine Ratio 17.6 (9.0-21.6); Calcium * 10.1 mg/dL (7.9-10.9); Carbon Dioxide 33.3 mmol/L (24-32.6); Estimated Creat Clear 35.1
--- NOTE | 2018-06-30 15:39 | CONS ---
HPI - General Date of Service: 06/30/18 Source: family, RN notes reviewed - History of Present Illness Timing/Duration: 4-6 hours Allergies/Adverse Reactions: Allergies iodine Allergy (Intermediate, Verified 06/28/18 11:04) rash tramadol Allergy (Intermediate, Verified 06/28/18 11:04) Swelling of Face Hallucinations Cephalosporins Adverse Reaction (Intermediate, Verified 06/28/18 11:04) Vomiting codeine Adverse Reaction (Mild, Verified 06/28/18 11:04) dizziness Beta-Blockers (Beta-Adrenergic Bloc Adverse Reaction (Verified 06/28/18 11:04) fatigue/cold ezetimibe [From Vytorin] Adverse Reaction (Verified 06/28/18 11:04) leg pain hydrocodone Adverse Reaction (Verified 06/28/18 11:04) sedation simvastatin [From Vytorin] Adverse Reaction (Verified 06/28/18 11:04) leg pain Contrast Dye Allergy (Intermediate, Uncoded 06/28/18 11:04) rash Home Medications: Home Medications Medication Instructions Recorded Last Taken Calc/D3/Mag/Zn/Dani/Elliott/Blue[place] 1 ea PO BID 07/13/16 Unknown [Calcium 600 mg Plus Vit D Tab] Diltiazem HCl [Diltiazem 24Hr Cd] 120 mg PO DAILY 07/13/16 06/28/18 03:00 Estradiol [Estrace Vaginal] 1 appl VAGINAL Q2D PRN MDD vaginal 07/13/16 Unknown dryness Furosemide [Lasix] 40 mg PO DAILY 07/13/16 Unknown Methenamine Hippurate 1 gm PO BID 07/13/16 Unknown Potassium Chloride [Klor-Con 10] 10 meq PO DAILY 07/13/16 Unknown Pravastatin Sodium 40 mg PO DAILY 07/13/16 Unknown Cyanocobalamin [Vitamin B-12] 1,000 mcg PO BID 08/18/16 Unknown albuterol sulfate HFA 90 1 puff INHALATION Q6H PRN g 06/07/18 Unknown mcg/actuation aerosol inhaler diclofenac 20 mg/gram/actuation (2 2 pump TP BID 06/07/18 Unknown %) topical soln metered-dose pump dofetilide 500 mcg capsule 500 mcg PO BID cap 06/07/18 Unknown sertraline 25 mg tablet 25 mg PO BID PRN tab 06/07/18 Unknown aspirin 325 mg tablet 325 mg PO DAILY 06/08/18 Unknown bethanechol chloride 10 mg tablet 10 mg PO TID 06/08/18 Unknown irbesartan 75 mg tablet 75 mg PO DAILY 06/08/18 06/28/18 03:00 levothyroxine 112 mcg capsule 112 mcg PO DAILY 06/08/18 Unknown melatonin 1 mg tablet 1 mg PO HS PRN 06/08/18 Unknown ondansetron HCl 8 mg tablet 8 mg PO TID 06/08/18 Unknown Procedures Excision of Left Knee Joint, Percutaneous Endoscopic Approach (08/18/16) Medications - Medications Current Medications: Current Medications Acetaminophen (Tylenol) 1,000 mg PO Q6H MARIA FERNANDA Stop: 07/30/18 09:31 Last Admin: 06/30/18 09:53 Dose: 1,000 mg Documented by: Albuterol Sulfate (Albuterol Sulfate 2.5 Mg/0.5ml) 2.5 mg IH Q6H PRN PRN Reason: Shortness Of Breath Stop: 07/28/18 10:03 Last Admin: 06/30/18 14:38 Dose: 2.5 mg Documented by: Bethanechol Chloride (Urecholine) 10 mg PO TID COUNT INCLUDES THE [facility] Stop: 07/28/18 13:01 Last Admin: 06/30/18 12:01 Dose: 10 mg Documented by: Calcium/Vitamin D (Calcarb 600 With Vitamin D) 1 tab PO BID MARIA FERNANDA Stop: 07/28/18 21:01 Last Admin: 06/30/18 09:50 Dose: 1 tab Documented by: Cyanocobalamin (Vitamin B-12) 1,000 mcg PO BID MARIA FERNANDA Stop: 07/28/18 21:01 Last Admin: 06/30/18 09:53 Dose: 1,000 mcg Documented by: Diltiazem HCl (Cardizem Cd) 120 mg PO DAILY MARIA FERNANDA Stop: 07/29/18 09:01 Last Admin: 06/30/18 09:50 Dose: 120 mg Documented by: Enoxaparin Sodium (Lovenox) 40 mg SC Q24H MARIA FERNANDA Stop: 07/29/18 09:00 Last Admin: 06/30/18 09:50 Dose: 40 mg Documented by: Furosemide (Lasix) 40 mg PO DAILY MARIA FERNANDA Stop: 07/29/18 09:01 Last Admin: 06/30/18 09:52 Dose: 40 mg Documented by: Lactated Ringer's (Lactated Ringers) 1,000 mls @ 125 mls/hr IV .Q8H PRN PRN Reason: HYDRATION Stop: 07/28/18 10:00 Last Infusion: 06/30/18 03:39 Dose: Infused Documented by: Levothyroxine Sodium (Synthroid) 112 mcg PO DAILY@0700 COUNT INCLUDES THE [facility] Stop: 07/29/18 07:01 Last Admin: 06/30/18 06:20 Dose: 112 mcg Documented by: Losartan Potassium (Cozaar) 25 mg PO DAILY MARIA FERNANDA Stop: 07/29/18 09:01 Last Admin: 06/30/18 09:50 Dose: 25 mg Documented by: Methenamine Mandelate (Urex) 1 gm PO BID COUNT INCLUDES THE [facility] Stop: 07/28/18 21:01 Last Admin: 06/30/18 09:53 Dose: 1 gm Documented by: Dofetilide [Tikosyn] (500 Mcg) 500 mcg PO BID COUNT INCLUDES THE [facility] Stop: 07/28/18 21:01 Last Admin: 06/30/18 09:51 Dose: 500 mcg Documented by: Ondansetron HCl (Zofran) 4 mg IV Q4H PRN PRN Reason: Nausea And Vomiting Stop: 07/28/18 10:00 Last Admin: 06/30/18 14:01 Dose: 4 mg Documented by: Ondansetron HCl (Zofran) 8 mg PO TID COUNT INCLUDES THE [facility] Stop: 07/28/18 13:01 Last Admin: 06/30/18 12:01 Dose: 8 mg Documented by: Potassium Chloride (Klor-Con 10) 10 meq PO DAILY COUNT INCLUDES THE [facility] Stop: 07/29/18 09:01 Last Admin: 06/30/18 09:52 Dose: 10 meq Documented by: Senna/Docusate Sodium (Senokot-S) 2 tab PO HS COUNT INCLUDES THE [facility] Stop: 07/28/18 21:01 Last Admin: 06/29/18 20:05 Dose: 2 tab Documented by: Simvastatin (Zocor) 20 mg PO HS COUNT INCLUDES THE [facility] Stop: 07/28/18 21:01 Last Admin: 06/29/18 20:07 Dose: 20 mg Documented by: Review of Systems - Review of Systems Narrative: Patient only briefly opening eyes to voice, and mumbles replies to questions Generalized/Overall Review: Absent: Fever Neurological: Present: Other Physical Examination - Exam Vital Signs: Vital Signs - Last Taken Temp 36.6 C 06/30/18 06:49 Pulse 92 06/30/18 14:48 Resp 16 06/30/18 14:48 BP 109/45 06/30/18 09:52 Pulse Ox 98 06/30/18 14:38 O2 Oxygen Delivery Method Nasal Cannula Constitutional: Present: Elderly, Obese Respiratory: Present: no respiratory distress - oxygenating at 95% on room air, rhonchi - bilaterally Cardiovascular/Chest: Present: regular rate, rhythm. Absent: edema Abdomen: Present: soft Extremity: Absent: lower extremity edema Neurologic: Present: other - does not fully waken for exam or follow commands - Results and Findings: Lab/Microbiology results last 24 hrs: Abnormal/Pending Laboratory Last 24 HRS 06/30/18 06/30/18 14:41 14:41 WBC 12.4 H D RBC 3.27 L Hgb 10.0 L Hct 31.3 L MCHC 31.9 L RDW 14.6 H Neutrophils % 83.3 H Lymphocytes % 6.4 L Monocytes % 9.1 H Neutrophils # 10.3 H Lymphocytes # 0.79 L Monocytes # 1.1 H Carbon Dioxide 33.3 H Est GFR (Non-Af Amer) 55 L D Random Glucose 111 H - Assessments/Findings (1) Altered mental status Diagnosis(s): Ddx includes medication side effect, new onset infection, hypoxia, CVA, cardiac event. Her morphine was stopped early this morning. CT Head, CBC, BMP, troponin, urinalysis, blood culture, urine culture pending. She is oxygenating at 95% on room air, and her vitals are appropriate, making hypoxia less likely. No acute changes on EKG. She did have an increase in her WBC this morning to 12.4, and has elevated neutrophils. Will start unasyn. Will start q2h neuro checks. Problem: Acute Qualifiers: Altered mental status type: disorientation Qualified Code(s): R41.0 - Disorientation, unspecified
[2018-06-30] MEDS ORDERED: METOCLOPRAMIDE HCL 5 MG/ML VIAL IV PRN (15:42)
[2018-06-30] MEDS ORDERED: NORMAL SALINE 1,000 ML IV ONE (15:44)
[2018-06-30] MEDS: AMPICILLIN SODIUM/SULBACTAM NA 3 GM in NORMAL SALINE 100 ML IV SCH ×2 (16:56→23:56)
[2018-06-30] MEDS: SENNOSIDES/DOCUSATE SODIUM 1 TAB TABLET PO SCH (22:27)
[2018-06-30] MEDS: SIMVASTATIN 20 MG TABLET PO SCH (22:28)
[2018-06-30 23:19] LABS: Urine Bilirubin Negative (NEGATIVE); Urine Blood Negative /ul (NEGATIVE); Urine Ketone Negative (NEGATIVE); Urine Protein Negative (NEGATIVE); Urine Specific Gravity 1.025 SP.GR. (1.005-1.010); Urine Urobilinogen Normal (NORMAL)
[2018-06-30 23:34] LABS: Urine Nitrite Positive (NEGATIVE)
[2018-06-30 23:36] LABS: Urine Appearance Slightly Cloudy (CLEAR); Urine Color Dark Yellow
[2018-06-30 23:37] LABS: Urine RBC None Seen /hpf (0-5); Urine WBC 0-5 /hpf (0-5)
[2018-06-30 23:38] LABS: Urine Bacteria 1+; Urine Hyaline Cast 0-5 /LPF
[2018-07-01] MEDS: ACETAMINOPHEN 500 MG TABLET PO SCH ×4 (04:29→22:40)
[2018-07-01 06:15] LABS: Hematocrit 24.7 % (37.0-47.0); Mean Cell Volume 96.1 fl (78-100); Mean Corpuscular Hemoglobin 30.7 pg (27-31); Mean Platelet Volume 10.7 fl (8-12.5); Neutrophil # 4.6 K/mm3 (1.3-6.0); Neutrophil % 71.9 % (42-75.0); Platelet Count 182 K/mm3 (150-450); Red Blood Count 2.57 M/mm3 (4.2-5.4); Red Cell Distribution Width 14.6 % (11.5-14.0); White Blood Count 6.4 K/mm3 (4.0-10.5)
[2018-07-01 06:28] LABS: Albumin * 2.1 gm/dl (3.4-5.0); BUN/Creatinine Ratio 23.6 (9.0-21.6); Bilirubin, Total 0.4 mg/dL (0.0-1.1); Ca. Corrected For Albumin 9.7 mg/dL (8.4-10.2); Calcium * 8.5 mg/dL (7.9-10.9); Carbon Dioxide 32.9 mmol/L (24-32.6); Potassium 3.9 mmol/L (3.4-4.6); Total Protein 5.4 gm/dL (6.2-8.2)
[2018-07-01 06:36] LABS: Hemoglobin 7.9 gm/dL (12.5-16.0)
[2018-07-01] MEDS: LEVOTHYROXINE SODIUM 112 MCG TABLET PO SCH (07:34)
[2018-07-01] MEDS: AMPICILLIN SODIUM/SULBACTAM NA 3 GM in NORMAL SALINE 100 ML IV SCH ×3 (07:34→22:41)
[2018-07-01] MEDS: ENOXAPARIN SODIUM 40 MG/0.4 ML SYRG SC SCH (08:25)
[2018-07-01] MEDS: DILTIAZEM HCL 120 MG CAP.SR.24H PO SCH (08:26)
[2018-07-01] MEDS: LOSARTAN POTASSIUM 50 MG TABLET PO SCH (08:26)
[2018-07-01] MEDS: DOFETILIDE 500 MCG PO SCH ×2 (08:27→22:38)
[2018-07-01] MEDS: POTASSIUM CHLORIDE 10 MEQ TABLET.SA PO SCH (08:28)
[2018-07-01] MEDS: METHENAMINE MANDELATE 1 GM TABLET PO SCH ×2 (08:28→22:39)
[2018-07-01] MEDS: FUROSEMIDE 40 MG TABLET PO SCH (08:28)
[2018-07-01] MEDS: BETHANECHOL CHLORIDE 10 MG TABLET PO SCH ×3 (08:28→16:51)
[2018-07-01] MEDS: CYANOCOBALAMIN 1,000 MCG TABLET PO SCH ×2 (08:29→22:40)
[2018-07-01] MEDS: ONDANSETRON HCL 8 MG TABLET PO SCH ×3 (08:29→16:52)
--- NOTE | 2018-07-01 09:15 | PN ---
Subjective - Date and Time Seen Date: 07/01/18 Time: 08:55 Subjective Narrative: Nursing reports continued weakness. Her mentation has improved from yesterday afternoon. She is able to swallow, and neuro checks have been ok. She is having some pain. Her heart rate started to increase late last night, but is now controlled on her home dofetilide. Objective - Review of Systems Generalized/Overall Review: Reports: Weakness. Denies: Fever Respiratory: Denies: Shortness of Breath Cardiac: Denies: Chest Pain, Edema Abdominal: Denies: Nausea Genitourinary Symptoms: Reports: No Symptoms Reported Musculoskeletal Complaints: Reports: Joint Pain - right knee Neurological: Reports: Other - confusion - Vitals Vitals: Last Vital Signs Temp 37.0 C 07/01/18 08:38 Pulse 73 07/01/18 08:38 Resp 18 07/01/18 08:38 BP 130/70 07/01/18 08:38 Pulse Ox 99 07/01/18 08:38 - Abnormal Lab Findings Abnormal Lab Findings: Abnormal Lab Results 06/30/18 06/30/18 06/30/18 Range/Units 14:41 14:41 16:21 WBC 12.4 H D (4.0-10.5) K/mm3 RBC 3.27 L (4.2-5.4) M/mm3 Hgb 10.0 L (12.5-16.0) gm/dL Hct 31.3 L (37.0-47.0) % MCHC 31.9 L (32-36) g/dl RDW 14.6 H (11.5-14.0) % Neutrophils % 83.3 H (42-75.0) % Lymphocytes % 6.4 L (20-51) % Monocytes % 9.1 H (0.0-9) % Neutrophils # 10.3 H (1.3-6.0) K/mm3 Lymphocytes # 0.79 L (1.5-3.5) k/mm3 Monocytes # 1.1 H (0.0-1.0) k/mm3 pCO2 46.4 H (32.0-45.0) mmHg pO2 62.6 L (83.0-108.0) mmHg HCO3 31.0 H (21.0-28.0) mmol/L Total CO2 32.4 H (19.0-24.0) mmol/L Base Excess 6.2 H (-2.0-3.0) mmol/L ABG O2 Sat (Measured) 92.6 L (94.0-98.0) % Carbon Dioxide 33.3 H (24-32.6) mmol/L Est GFR (Non-Af Amer) 55 L D (60-130) mL/min BUN/Creatinine Ratio (9.0-21.6) Random Glucose 111 H (70-110) mg/dL Total Protein (6.2-8.2) gm/dL Albumin (3.4-5.0) gm/dl Urine Nitrate (NEGATIVE) Urine Bacteria (NONE) Hyaline Casts (NONE) /LPF Urine Comment 06/30/18 07/01/18 07/01/18 Range/Units 23:00 06:00 06:00 WBC (4.0-10.5) K/mm3 RBC 2.57 L (4.2-5.4) M/mm3 Hgb 7.9 L* D (12.5-16.0) gm/dL Hct 24.7 L (37.0-47.0) % MCHC (32-36) g/dl RDW 14.6 H (11.5-14.0) % Neutrophils % (42-75.0) % Lymphocytes % 12.6 L (20-51) % Monocytes % 13.6 H (0.0-9) % Neutrophils # (1.3-6.0) K/mm3 Lymphocytes # 0.81 L (1.5-3.5) k/mm3 Monocytes # (0.0-1.0) k/mm3 pCO2 (32.0-45.0) mmHg pO2 (83.0-108.0) mmHg HCO3 (21.0-28.0) mmol/L Total CO2 (19.0-24.0) mmol/L Base Excess (-2.0-3.0) mmol/L ABG O2 Sat (Measured) (94.0-98.0) % Carbon Dioxide 32.9 H (24-32.6) mmol/L Est GFR (Non-Af Amer) (60-130) mL/min BUN/Creatinine Ratio 23.6 H (9.0-21.6) Random Glucose (70-110) mg/dL Total Protein 5.4 L (6.2-8.2) gm/dL Albumin 2.1 L (3.4-5.0) gm/dl Urine Nitrate Positive H (NEGATIVE) Urine Bacteria 1+ H (NONE) Hyaline Casts 0-5 H (NONE) /LPF Urine Comment Culture ordered L - Exam Constitutional: Present: Alert, Elderly, Morbidly obese Respiratory: Present: no respiratory distress, rales - left Cardiovascular/Chest: Present: regular rate, rhythm Abdomen: Present: obese, tender Extremity: Absent: lower extremity edema Thoughts: Present: other - unable to state place or time Cauti Physician Documentation - Urinary Catheter Management Urethral (Scott) Date of Insertion: 06/28/18 Time of Insertion: 08:59 Date of Removal: 06/29/18 Time of Removal: 06:30 Assessment/Plan - Problems/Diagnosis (1) Altered mental status Problem: Acute Qualifiers: Altered mental status type: disorientation Qualified Code(s): R41.0 - Disorientation, unspecified Narrative: Improving, but she is not back to her baseline. She is alert and able to answer questions, but is still confused, unable to name place or time. Likely secondary to morphine, and her dose was decreased to 2 mg. CXR showed possible pneumonia, and unasyn was started. She is not coughing, is afebrile, and WBC returned to normal today, so pneumonia is less likely, however will continue unasyn for at least 3 days since she is improving with its addition. UA showed positive nitrates and only 1+ bacteria, culture pending. negative troponins. Negative CT head. She did have an ELVIN, as her creatinine increased from 0.69 to 1.02, which was a 30% increase in one day. Creatinine improved today after fluids, to 0.72. Continue PT, but with her weakness, her participation will be limited today. (2) Acute blood loss anemia Problem: Acute Narrative: Her Hgb decreased to 7.9 today, down from 10.0, and she is very weak. Will administer one unit PRBC.
--- NOTE | 2018-07-01 10:38 | PN ---
Subjective - Date and Time Seen Date: 07/01/18 Time: 10:27 Subjective Narrative: Patient lying comfortably in bed. Responds to questions appropriately. Appears to have improved mentation today but still but still some underlying confusion. She reports she is aware that she has been confused. At this point time she reports her pain is controlled. She reports she feels she did well getting up and ambulating around her room. She did spend the evening in ICU as a precaution but has been moved back out to her regular room this morning. She reports her breathing has improved but still feels a little short of breath and worn down. Objective Objective Narrative: Paler skin tone. Vital signs show normal blood pressure and no tachycardia. She has a saturation of 100% on room air at this point in time.On command collin cisse is able to plantarflex and dorsiflex her right ankle. Calf is supple. DARLENE hose on with some dry bloody show but no active bleeding. Reviewing lab work her hemoglobin is down to 7.9. - Vitals Vitals: Last Vital Signs Temp 36.8 C 07/01/18 10:15 Pulse 73 07/01/18 10:15 Resp 18 07/01/18 10:15 BP 128/67 07/01/18 10:15 Pulse Ox 100 07/01/18 10:15 - Abnormal Lab Findings Abnormal Lab Findings: Abnormal Lab Results 06/30/18 06/30/18 06/30/18 Range/Units 14:41 14:41 16:21 WBC 12.4 H D (4.0-10.5) K/mm3 RBC 3.27 L (4.2-5.4) M/mm3 Hgb 10.0 L (12.5-16.0) gm/dL Hct 31.3 L (37.0-47.0) % MCHC 31.9 L (32-36) g/dl RDW 14.6 H (11.5-14.0) % Neutrophils % 83.3 H (42-75.0) % Lymphocytes % 6.4 L (20-51) % Monocytes % 9.1 H (0.0-9) % Neutrophils # 10.3 H (1.3-6.0) K/mm3 Lymphocytes # 0.79 L (1.5-3.5) k/mm3 Monocytes # 1.1 H (0.0-1.0) k/mm3 pCO2 46.4 H (32.0-45.0) mmHg pO2 62.6 L (83.0-108.0) mmHg HCO3 31.0 H (21.0-28.0) mmol/L Total CO2 32.4 H (19.0-24.0) mmol/L Base Excess 6.2 H (-2.0-3.0) mmol/L ABG O2 Sat (Measured) 92.6 L (94.0-98.0) % Carbon Dioxide 33.3 H (24-32.6) mmol/L Est GFR (Non-Af Amer) 55 L D (60-130) mL/min BUN/Creatinine Ratio (9.0-21.6) Random Glucose 111 H (70-110) mg/dL Total Protein (6.2-8.2) gm/dL Albumin (3.4-5.0) gm/dl Urine Nitrate (NEGATIVE) Urine Bacteria (NONE) Hyaline Casts (NONE) /LPF Urine Comment 06/30/18 07/01/18 07/01/18 Range/Units 23:00 06:00 06:00 WBC (4.0-10.5) K/mm3 RBC 2.57 L (4.2-5.4) M/mm3 Hgb 7.9 L* D (12.5-16.0) gm/dL Hct 24.7 L (37.0-47.0) % MCHC (32-36) g/dl RDW 14.6 H (11.5-14.0) % Neutrophils % (42-75.0) % Lymphocytes % 12.6 L (20-51) % Monocytes % 13.6 H (0.0-9) % Neutrophils # (1.3-6.0) K/mm3 Lymphocytes # 0.81 L (1.5-3.5) k/mm3 Monocytes # (0.0-1.0) k/mm3 pCO2 (32.0-45.0) mmHg pO2 (83.0-108.0) mmHg HCO3 (21.0-28.0) mmol/L Total CO2 (19.0-24.0) mmol/L Base Excess (-2.0-3.0) mmol/L ABG O2 Sat (Measured) (94.0-98.0) % Carbon Dioxide 32.9 H (24-32.6) mmol/L Est GFR (Non-Af Amer) (60-130) mL/min BUN/Creatinine Ratio 23.6 H (9.0-21.6) Random Glucose (70-110) mg/dL Total Protein 5.4 L (6.2-8.2) gm/dL Albumin 2.1 L (3.4-5.0) gm/dl Urine Nitrate Positive H (NEGATIVE) Urine Bacteria 1+ H (NONE) Hyaline Casts 0-5 H (NONE) /LPF Urine Comment Culture ordered L Cauti Physician Documentation - Urinary Catheter Management Urethral (Scott) Date of Insertion: 06/28/18 Time of Insertion: 08:59 Date of Removal: 06/29/18 Time of Removal: 06:30 Assessment/Plan - Problems/Diagnosis (1) Status post right knee replacement Problem: Acute Narrative: Continue physical therapy. Anticoagulation. She is scheduled on Tylenol for pain. She does have a small dose of morphine ordered if she needs for breakthrough pain. I do believe with her asthma flare as well as with the pain medications did suppress her respiration and led to some of her oxygen s aturation issues. The narcotics were also contributing to her confusion. She does seem to be more clear today. Anticipate possible discharge on Tuesday to [facility]. (2) Hypertension Problem: Chronic (3) Acute blood loss anemia Problem: Acute Narrative: Her hemoglobin has dropped. She does not have any apparent active bleeding. With having a bolus of fluids this could be dilution as well. She does feel weak and has paler. Her blood pressure and pulse are stable. Dr. Siddiqui has ordered a unit of packed red blood cells. (4) Diabetes type 2, controlled Problem: Chronic (5) Hyperlipidemia Problem: Chronic (6) Asthma Problem: Chronic Narrative: Her wheezing and saturation have improved. (7) History of stroke Problem: Chronic (8) Sleep apnea Problem: Chronic (9) Coronary artery disease Problem: Chronic (10) Diabetic neuropathy Problem: Chronic
[2018-07-01] MEDS: MAGNESIUM HYDROXIDE 30 ML UDC PO PRN (16:50)
[2018-07-01] MEDS: MORPHINE SULFATE 10 MG/0.5 ML SYRINGE PO PRN (16:51)
[2018-07-01] MEDS: SENNOSIDES/DOCUSATE SODIUM 1 TAB TABLET PO SCH (22:39)
[2018-07-02] MEDS: ACETAMINOPHEN 500 MG TABLET PO SCH ×4 (03:50→21:42)
[2018-07-02] MEDS: ALBUTEROL SULFATE 2.5 MG/0.5 ML VIAL.NEB IH PRN (06:54)
[2018-07-02] MEDS: MAGNESIUM HYDROXIDE 30 ML UDC PO PRN (06:56)
[2018-07-02] MEDS: LEVOTHYROXINE SODIUM 112 MCG TABLET PO SCH (06:56)
[2018-07-02] MEDS: AMPICILLIN SODIUM/SULBACTAM NA 3 GM in NORMAL SALINE 100 ML IV SCH ×3 (06:58→19:39)
[2018-07-02 07:04] LABS: Hematocrit 33.1 % (37.0-47.0); Hemoglobin 10.5 gm/dL (12.5-16.0); Mean Cell Volume 95.4 fl (78-100); Mean Corpuscular Hemoglobin 30.3 pg (27-31); Mean Corpuscular Hgb Conc 31.7 g/dl (32-36); Mean Platelet Volume 11.2 fl (8-12.5); Neutrophil # 4.4 K/mm3 (1.3-6.0); Neutrophil % 64.3 % (42-75.0); Platelet Count 217 K/mm3 (150-450); Red Blood Count 3.47 M/mm3 (4.2-5.4); Red Cell Distribution Width 15.4 % (11.5-14.0); White Blood Count 6.8 K/mm3 (4.0-10.5)
[2018-07-02] MEDS: BETHANECHOL CHLORIDE 10 MG TABLET PO SCH ×3 (08:35→16:42)
[2018-07-02] MEDS: DOFETILIDE 500 MCG PO SCH ×2 (08:35→20:28)
[2018-07-02] MEDS: ENOXAPARIN SODIUM 40 MG/0.4 ML SYRG SC SCH (08:35)
[2018-07-02] MEDS: POTASSIUM CHLORIDE 10 MEQ TABLET.SA PO SCH (08:36)
[2018-07-02] MEDS: DILTIAZEM HCL 120 MG CAP.SR.24H PO SCH (08:36)
[2018-07-02] MEDS: ONDANSETRON HCL 8 MG TABLET PO SCH ×3 (08:36→16:42)
[2018-07-02] MEDS: FUROSEMIDE 40 MG TABLET PO SCH (08:36)
[2018-07-02] MEDS: CYANOCOBALAMIN 1,000 MCG TABLET PO SCH ×2 (08:36→20:29)
[2018-07-02] MEDS: LOSARTAN POTASSIUM 50 MG TABLET PO SCH (08:36)
[2018-07-02] MEDS: METHENAMINE MANDELATE 1 GM TABLET PO SCH ×2 (08:36→20:29)
--- NOTE | 2018-07-02 09:25 | PN ---
Subjective - Date and Time Seen Date: 07/02/18 Time: 09:13 Subjective Narrative: Patient reports she does not have any significant pain at rest. She reports when she gets up to ambulate it just feels like her legs will not move for her. She states she would like to get up and walk some more. She states she feels more alert but still wore down. No other complaints Objective Objective Narrative: Patient up in chair. Responds to questions appropriately. Has ThermaCare wrap on. Evaluation of the incision reports dry bloody show through on DARLENE hose incision well approximated. Dry blood noted on DARLENE hose from drain site but no active bleeding. Her hemoglobin is improved to 10.5 - Vitals Vitals: Last Vital Signs Temp 36.6 C 07/02/18 08:04 Pulse 74 07/02/18 08:36 Resp 20 07/02/18 08:04 BP 160/88 H 07/02/18 08:36 Pulse Ox 96 07/02/18 08:04 - Abnormal Lab Findings Abnormal Lab Findings: Abnormal Lab Results 07/01/18 07/02/18 Range/Units 07:35 07:00 RBC 3.47 L (4.2-5.4) M/mm3 Hgb 10.5 L (12.5-16.0) gm/dL Hct 33.1 L (37.0-47.0) % MCHC 31.7 L (32-36) g/dl RDW 15.4 H (11.5-14.0) % Immature Gran % (Auto) 0.60 H (0.001-0.429) % Immature Gran # (Auto) 0.04 H (0.000-0.0310) K/mm3 Lymphocytes % 18.3 L (20-51) % Monocytes % 13.3 H (0.0-9) % Eosinophils % 3.2 H (0.0-3.0) % Lymphocytes # 1.25 L (1.5-3.5) k/mm3 Crossmatch See Detail Cauti Physician Documentation - Urinary Catheter Management Urethral (Scott) Date of Insertion: 06/28/18 Time of Insertion: 08:59 Date of Removal: 06/29/18 Time of Removal: 06:30 Assessment/Plan - Problems/Diagnosis (1) Status post right knee replacement Problem: Acute Narrative: Patient slow to progress. Patient will need skilled care for continued physical therapy. Continue anticoagulation. (2) Hypertension Problem: Chronic (3) Acute blood loss anemia Problem: Acute Narrative: Improved (4) Diabetes type 2, controlled Problem: Chronic (5) Hyperlipidemia Problem: Chronic (6) Asthma Problem: Chronic (7) History of stroke Problem: Chronic (8) Sleep apnea Problem: Chronic (9) Coronary artery disease Problem: Chronic (10) Diabetic neuropathy Problem: Chronic
--- NOTE | 2018-07-02 10:49 | PN ---
Subjective - Date and Time Seen Date: 07/02/18 Time: 10:46 Subjective Narrative: Patient is much more alert today, and remembers me from yesterday. She worked with physical therapy this morning, and feels like her pain is well controlled. She reports having numerous UTIs at baseline, and always has urinary incontinence. Objective - Review of Systems Generalized/Overall Review: Denies: Fever Respiratory: Denies: Cough, Shortness of Breath Cardiac: Denies: Chest Pain, Edema Abdominal: Denies: Nausea Genitourinary Symptoms: Reports: Incontinent - At her baseline. Denies: Burning - Vitals Vitals: Last Vital Signs Temp 36.6 C 07/02/18 08:04 Pulse 74 07/02/18 08:36 Resp 20 07/02/18 08:04 BP 160/88 H 07/02/18 08:36 Pulse Ox 96 07/02/18 08:04 - Abnormal Lab Findings Abnormal Lab Findings: Abnormal Lab Results 07/01/18 07/02/18 Range/Units 07:35 07:00 RBC 3.47 L (4.2-5.4) M/mm3 Hgb 10.5 L (12.5-16.0) gm/dL Hct 33.1 L (37.0-47.0) % MCHC 31.7 L (32-36) g/dl RDW 15.4 H (11.5-14.0) % Immature Gran % (Auto) 0.60 H (0.001-0.429) % Immature Gran # (Auto) 0.04 H (0.000-0.0310) K/mm3 Lymphocytes % 18.3 L (20-51) % Monocytes % 13.3 H (0.0-9) % Eosinophils % 3.2 H (0.0-3.0) % Lymphocytes # 1.25 L (1.5-3.5) k/mm3 Crossmatch See Detail - Exam Constitutional: Present: Alert, Oriented x3, Cooperative, Elderly Respiratory: Present: normal breath sounds, no respiratory distress Cardiovascular/Chest: Present: regular rate, rhythm Abdomen: Present: soft, nontender Extremity: Absent: lower extremity edema - DARLENE hose in place Eye contact: Present: cooperative, good eye contact Cauti Physician Documentation - Urinary Catheter Management Urethral (Scott) Date of Insertion: 06/28/18 Time of Insertion: 08:59 Date of Removal: 06/29/18 Time of Removal: 06:30 Assessment/Plan - Problems/Diagnosis (1) Altered mental status Problem: Resolved Qualifiers: Altered mental status type: disorientation Qualified Code(s): R41.0 - Disorientation, unspecified Narrative: Her altered mental status has resolved and she is back to baseline. She is alert and oriented to self, place, time. The AMS is likely secondary to morphine. UTI is considered in the differential, however is less likely as she is having no urinary symptoms different from her baseline. Urine culture is growing 20-30,000 CFU's of gram-negative bacilli. This was obtained after the Unasyn was started, so it is less reliable. She reports having multiple urinary tract infections in the past, and has incontinence at baseline. She was started on Unasyn on Tuesday, and will complete 3 days of treatment to cover for potential UTI. She will likely be able to go to the [facility] tomorrow. Family members were wondering if she would be able to have the ice machine for her knee while there. (2) Acute blood loss anemia Problem: Resolved Narrative: She received 1 unit PRBCs yesterday for a hemoglobin of 7.9, due to her history of A. fib. Hemoglobin today is 10.5.
[2018-07-02] MEDS: MORPHINE SULFATE 10 MG/0.5 ML SYRINGE PO PRN (12:33)
[2018-07-02] MEDS: SENNOSIDES/DOCUSATE SODIUM 1 TAB TABLET PO SCH (20:28)
[2018-07-03] MEDS: AMPICILLIN SODIUM/SULBACTAM NA 3 GM in NORMAL SALINE 100 ML IV SCH ×2 (02:32→08:47)
[2018-07-03] MEDS: ACETAMINOPHEN 500 MG TABLET PO SCH ×2 (02:33→08:52)
[2018-07-03] MEDS: LEVOTHYROXINE SODIUM 112 MCG TABLET PO SCH (06:55)
[2018-07-03] MEDS: ENOXAPARIN SODIUM 40 MG/0.4 ML SYRG SC SCH (08:48)
[2018-07-03] MEDS: ONDANSETRON HCL 8 MG TABLET PO SCH (08:51)
[2018-07-03] MEDS: METHENAMINE MANDELATE 1 GM TABLET PO SCH (08:51)
[2018-07-03] MEDS: CYANOCOBALAMIN 1,000 MCG TABLET PO SCH (08:56)
[2018-07-03] MEDS: LOSARTAN POTASSIUM 50 MG TABLET PO SCH (08:56)
[2018-07-03] MEDS: POTASSIUM CHLORIDE 10 MEQ TABLET.SA PO SCH (08:57)
[2018-07-03] MEDS: DOFETILIDE 500 MCG PO SCH (08:59)
[2018-07-03] MEDS: FUROSEMIDE 40 MG TABLET PO SCH (08:59)
[2018-07-03] MEDS: DILTIAZEM HCL 120 MG CAP.SR.24H PO SCH (08:59)
[2018-07-03] MEDS: BETHANECHOL CHLORIDE 10 MG TABLET PO SCH (09:00)
--- NOTE | 2018-07-03 09:09 | PN ---
Subjective - Date and Time Seen Date: 07/03/18 Time: 09:27 Subjective Narrative: Patient continues to feel better. She states she felt better yesterday after working with physical therapy, and is hoping to have PT again today. She is having loose bowel movements. Objective - Review of Systems Generalized/Overall Review: Denies: Fever Respiratory: Denies: Cough, Shortness of Breath Cardiac: Denies: Chest Pain, Edema Abdominal: Reports: Other - loose stools. Denies: Vomiting Genitourinary Symptoms: Reports: Incontinent - her baseline Musculoskeletal Complaints: Reports: Joint Pain - right knee Neurological: Reports: No Symptoms Reported - Vitals Vitals: Last Vital Signs Temp 36.5 C 07/03/18 06:53 Pulse 68 07/03/18 08:59 Resp 20 07/03/18 06:53 BP 150/76 H 07/03/18 08:59 Pulse Ox 98 07/03/18 06:53 - Exam Constitutional: Present: Alert, Oriented x3, Cooperative, Well developed, Well nourished, Elderly Respiratory: Present: lungs clear, normal breath sounds Cardiovascular/Chest: Present: regular rate, rhythm Abdomen: Present: Normal bowel sounds, soft, nontender Extremity: Present: other - DARLENE hose in place. Absent: lower extremity edema Cauti Physician Documentation - Urinary Catheter Management Urethral (Scott) Date of Insertion: 06/28/18 Time of Insertion: 08:59 Date of Removal: 06/29/18 Time of Removal: 06:30 Assessment/Plan - Problems/Diagnosis (1) Altered mental status Problem: Resolved Qualifiers: Altered mental status type: disorientation Qualified Code(s): R41.0 - Disorientation, unspecified Narrative: Her urine came back with 20-30,000 CFU pseudomonas. She has been given unasyn, which does not cover pseudomonas. That is a low CFU count, and since she is not having symptoms, I do not believe she had a urinary tract infection. Will DC unasyn. AMS likely secondary to morphine, and she has tolerated a lower dose without difficulty. She is working with PT. OK to DC to facility today. (2) Acute blood loss anemia Problem: Resolved Narrative: Hgb 10.5 yesterday after being given 1 U PRBC for hgb of 7.9. No active signs of blood loss.
--- NOTE | 2018-07-03 10:41 | DS ---
(1) Status post right knee replacement Problem: Acute (2) Asthma Problem: Chronic (3) Coronary artery disease Problem: Chronic (4) Diabetes type 2, controlled Problem: Chronic (5) Diabetic neuropathy Problem: Chronic (6) History of stroke Problem: Chronic (7) Hyperlipidemia Problem: Chronic (8) Hypertension Problem: Chronic (9) Sleep apnea Problem: Chronic (10) Acute blood loss anemia Problem: Resolved (11) Altered mental status Problem: Resolved Qualifiers: Altered mental status type: disorientation Qualified Code(s): R41.0 - Disorientation, unspecified Description of Stay: Mrs. Storey was admitted to the floor after undergoing right total knee arthroplasty. Tolerated this well. Was admitted to the floor postoperatively for 24 hours of IV antibiotics, pain control, medical comanagement, and occupational and physical therapy. OT and PT were consulted to assist with activities of daily living and ambulation. Was made weightbearing as tolerated with range of motion as tolerated. Pain was initially controlled with IV lissett men. This was transitioned to oral once tolerating a by mouth intake. She did have some confusion and nausea with subsequent vomiting and an episode of hypoxemia which was felt to be related to her pain meds. She was backed off on these and improved with both mentation and respiratory status. She was anemic which responded to 1 unit of packed red blood cells. She was followed by family medicine who evaluated her for urinary tract infection and treated her for a short duration but felt overall she did not have a true urinary tract infection. Was resumed on home diet and medications. Had a Scott catheter inserted and the operating room which was discontinued on postoperative day 1. A drain was placed intraoperatively into the knee which was discontinued on postoperative day 1. Lovenox SCD and DARLENE hose were utilized for DVT prophylaxis. Vital signs remained stable to the hospital course. Serial labs were obtained which showed a final hemoglobin of 10.5 grams after transfusion. BMP was reviewed and was stable. Physical examination throughout the hospital course showed an extremity that had sensation that was intact to light touch, palpable pulses, a benign wound, motor intact to the toes, ankle, and knee. Knee range of motion was approximately 0 degrees to 60 degrees. Once an oral pain regimen was tolerated and physical therapy goals were met, it was felt that they were stable for discharge to [facility] in order to obtain additional therapy. Instructions: Continue with weightbearing as tolerated and range of motion as tolerated. It is okay to shower and get the wound wet as long as there is no drainage from the wound. Do not bathe or soak the wound. If there is any drainage from the wound keep the wound clean and dry and cover with dry gauze and tape. Change every 2- 3 days as needed if there is any drainage. Cover wound while showering if there is any drainage. Continue with physical therapy and occupational therapy. Resume home diet. Report any fever over 101.5 Fahrenheit, uncontrolled pain, increased drainage, foul odor of drainage, new or increased calf pain or shortness of breath, or any other significant complaints. A 325mg dialy aspirin will be started after finishing anticoagulation if not allergic. Continue with DARLENE hose on the operative extremity until instructed otherwise. No driving until instructed otherwise. Follow up in approximately 10-14 days. She will utilize her home CPAP at the home settings. I am okay with her taking her home [id number] oral vitamins. Procedures Performed: see notes below List Procedures: Right total knee arthroplasty 1 unit PRBC transfusion Results and Findings: Pending Mircobiology Results 06/30/18 16:09 Blood Blood Culture - Preliminary NO GROWTH AFTER 48 HOURS 06/30/18 14:41 Blood Blood Culture - Preliminary NO GROWTH AFTER 48 HOURS Lab Pending Results 06/29/18 05:31: WBC 8.6, RBC 3.54 L, Hgb 10.6 L, Hct 34.1 L, MCV 96.3, MCH 29.9, MCHC 31.1 L, RDW 14.6 H, Plt Count 243, MPV 11.3 06/29/18 05:31: Sodium 139, Plasma Sodium 139, Potassium 4.4, Chloride 103, Carbon Dioxide 31.3, Anion Gap 9.1, BUN 12, Creatinine 0.69, Est GFR (Non-Af Amer) 86, BUN/Creatinine Ratio 17.4, Random Glucose 114 H, Calcium 9.3 06/30/18 14:41: WBC 12.4 H D, RBC 3.27 L, Hgb 10.0 L, Hct 31.3 L, MCV 95.7, MCH 30.6, MCHC 31.9 L, RDW 14.6 H, Plt Count 241, MPV 10.7, Immature Gran % (Auto) 0.20, Immature Gran # (Auto) 0.03, Neutrophils % 83.3 H, Lymphocytes % 6.4 L, Monocytes % 9.1 H, Eosinophils % 0.8, Basophils % 0.2, Nucleated RBC % 0.0, Neutrophils # 10.3 H, Lymphocytes # 0.79 L, Monocytes # 1.1 H, Eosinophils # 0.1, Absolute Basophils 0.0 06/30/18 14:41: Sodium 137, Plasma Sodium 137, Potassium 4.0, Chloride 99, Carbon Dioxide 33.3 H, Anion Gap 8.7, BUN 18, Creatinine 1.02, Est GFR (Non-Af Amer) 55 L D, BUN/Creatinine Ratio 17.6, Random Glucose 111 H, Calcium 10.1 06/30/18 14:41: Troponin I Less than 0.017 06/30/18 16:21: pCO2 46.4 H, pO2 62.6 L, HCO3 31.0 H, Total CO2 32.4 H, Base Excess 6.2 H, ABG pH 7.44, ABG O2 Sat (Measured) 92.6 L 06/30/18 22:25: Troponin I Less than 0.017 06/30/18 23:00: Urine Color Dark yellow, Urine Appearance Slightly cloudy, Urine pH 6.0, Ur Specific [place] 1.025, Urine Protein Negative, Urine Glucose (UA) Negative, Urine Ketones Negative, Urine Blood Negative, Urine Nitrate Positive H, Urine Bilirubin Negative, Urine Urobilinogen Normal, Ur Leukocyte Esterase Negative, Urine RBC None seen, Urine WBC 0-5, Ur Epithelial Cells 0-5, Urine Bacteria 1+ H, Hyaline Casts 0-5 H, Urine Comment Culture ordered L 07/01/18 06:00: WBC 6.4 D, RBC 2.57 L, Hgb 7.9 L* D, Hct 24.7 L, MCV 96.1, MCH 30.7, MCHC 32.0, RDW 14.6 H, Plt Count 182, MPV 10.7, Immature Gran % (Auto) 0.20, Immature Gran # (Auto) 0.01, Neutrophils % 71.9, Lymphocytes % 12.6 L, Monocytes % 13.6 H, Eosinophils % 1.4, Basophils % 0.3, Nucleated RBC % 0.0, Neutrophils # 4.6, Lymphocytes # 0.81 L, Monocytes # 0.9, Eosinophils # 0.1, Absolute Basophils 0.0 07/01/18 06:00: Sodium 138, Plasma Sodium 138, Potassium 3.9, Chloride 102, Carbon Dioxide 32.9 H, Anion Gap 7.0, BUN 17, Creatinine 0.72, Est GFR (Non-Af Amer) 82 D, BUN/Creatinine Ratio 23.6 H, Random Glucose 108, Calcium 8.5, Calcium Adj for Albumin 9.7, Total Bilirubin 0.4, AST 33, ALT 19, Alkaline Phosphatase 63, Total Protein 5.4 L, Albumin 2.1 L 07/01/18 07:35: Blood Type O Positive, Antibody Screen Negative, Crossmatch See Detail 07/02/18 07:00: WBC 6.8, RBC 3.47 L, Hgb 10.5 L, Hct 33.1 L, MCV 95.4, MCH 30.3, MCHC 31.7 L, RDW 15.4 H, Plt Count 217, MPV 11.2, Immature Gran % (Auto) 0.60 H, Immature Gran # (Auto) 0.04 H, Neutrophils % 64.3, Lymphocytes % 18.3 L, Monocytes % 13.3 H, Eosinophils % 3.2 H, Basophils % 0.3, Nucleated RBC % 0.0, Neutrophils # 4.4, Lymphocytes # 1.25 L, Monocytes # 0.9, Eosinophils # 0.2, Absolute Basophils 0.0 Discharge Location: [facility] Disposition: SNF Condition: Good Discharge Activity: Activity as tolerated, Weight bearing Discharge Diet: Consistent carbs Fdc Therapy: Physicial Therapy, Occupation Therapy Referrals: Zulema Moreland DO [Primary Care Provider] - Additional Patient Instructions (free text): SNF at [facility] for PT and OT to evaluate and treat. Follow-up appointment scheduled in the office with Dr. Cuevas on Tuesday07/18/18 at 9:15am. If using ICEmachine and CPM orders are: Ice Machine as tolerated when sedentary, at least 4 hours a day, no maximum time. CPM 0-70 degrees flexion, progress as tolerated up to 110 increasing 10 degrees daily as tolerated, use 3 times a day for 1-2 hours at a time, may use for longer periods or more often pending patients comfort. Prescriptions (Any new or edited meds): Enoxaparin Sodium [Lovenox] 40 mg SC Q24H #5 disp.syrin Sennosides/Docusate Sodium [Senokot-S] 2 tab PO HS #60 tab Acetaminophen [Tylenol] 650 mg PO Q4H PRN #120 cap PRN Reason: Pain Complete Home Medications List: Complete Home Medication List: Calc/D3/Mag/Zn/Dani/Elliott/[place] [Calcium 600 mg Plus Vit D Tab] 1 ea PO BID 07/13/16 Diltiazem HCl [Diltiazem 24Hr Cd] 120 mg PO DAILY 07/13/16 Estradiol [Estrace Vaginal] 1 appl VAGINAL Q2D PRN MDD vaginal dryness 07/13/16 Furosemide [Lasix] 40 mg PO DAILY 07/13/16 Methenamine Hippurate 1 gm PO BID 07/13/16 Potassium Chloride [Klor-Con 10] 10 meq PO DAILY 07/13/16 Pravastatin Sodium 40 mg PO DAILY 07/13/16 Cyanocobalamin [Vitamin B-12] 1,000 mcg PO BID 08/18/16 albuterol sulfate HFA 90 mcg/actuation aerosol inhaler 1 puff INHALATION Q6H PRN g 06/07/18 diclofenac 20 mg/gram/actuation (2 %) topical soln metered-dose pump 2 pump TP BID 06/07/18 dofetilide 500 mcg capsule 500 mcg PO BID cap 06/07/18 sertraline 25 mg tablet 25 mg PO BID PRN tab 06/07/18 aspirin 325 mg tablet 325 mg PO DAILY 06/08/18 bethanechol chloride 10 mg tablet 10 mg PO TID 06/08/18 irbesartan 75 mg tablet 75 mg PO DAILY 06/08/18 levothyroxine 112 mcg capsule 112 mcg PO DAILY 06/08/18 melatonin 1 mg tablet 1 mg PO HS PRN 06/08/18 ondansetron HCl 8 mg tablet 8 mg PO TID 06/08/18 Acetaminophen [Tylenol] 650 mg PO Q4H PRN #120 cap 07/03/18 Enoxaparin Sodium [Lovenox] 40 mg SC Q24H #5 disp.syrin 07/03/18 Sennosides/Docusate Sodium [Senokot-S] 2 tab PO HS #60 tab 07/03/18
[2018-07-03 13:30] VITALS: BP 172/56
== END 2018-07-03 13:03 | DRG 470 ==
LOC: MS 06:28 → EDSTATUS 08:30 → SCU 06-30 15:40 → MS 07-01 09:05
PROVIDERS: ADMIT Orthopaedic Surgery; ATTEND Orthopaedic Surgery
DX: J45.901 Unspecified asthma with (acute) exacerbation; Z86.73 Personal history of transient ischemic attack (TIA), and cerebral infarction without residual deficits; E78.5 Hyperlipidemia, unspecified; G47.30 Sleep apnea, unspecified; M17.11 Unilateral primary osteoarthritis, right knee; E11.40 Type 2 diabetes mellitus with diabetic neuropathy, unspecified; I25.10 Atherosclerotic heart disease of native coronary artery without angina pectoris; J44.9 Chronic obstructive pulmonary disease, unspecified; D62 Acute posthemorrhagic anemia; I48.91 Unspecified atrial fibrillation; I10 Essential (primary) hypertension; E03.9 Hypothyroidism, unspecified; R41.82 Altered mental status, unspecified
CPT/HCPCS: 36415; 36600; 70450; 71010; 71045; 73560; 80048; 80053; 81001; 82803; 84484; 85025; 85027; 86850; 87040; 87077; 87086; 87186; 92523; 93005; 94640; 94660; 94664; 97110; 97116; 97161; 97165; 97530; 97535; J2405; P9016